=== PATIENT | male | born 1940 | race Caucasian/White ===

== ENCOUNTER 2021-12-09 10:06 | Emergency (ER) | payer OTHER, SELFPAY ==
--- NOTE | ~2021-12-09 | CT_ITS ---
EXAMINATION: CTA chest PE protocol DATE: 12/09/2021 13:50 INDICATION: Shortness of breath, cough TECHNIQUE: Computed tomography angiography (CTA) of the chest was performed with 100 mL Omnipaque-350 intravenous contrast timed to evaluate the pulmonary arteries. Coronal maximum intensity projection 3D-reconstructions were created by the technologist. Automated exposure control and iterative reconst ruction technique were employed. Exam dose: 559.14 mGy-cm total exam DLP. COMPARISON: 12/2021 PA and lateral chest FINDINGS: There is diagnostic contrast enhancement of the pulmonary arteries and no evidence of pulmo nary embolism. No thoracic aortic aneurysm or dissection. No hilar or mediastinal mass lesion or lymphadenopathy. Normal heart size. Coronary calcifications. No pericardial or pleural effusion. Mild discoid atelectasis or scarring at the lung bases. No pulmonary infiltrate or consolidation or s uspicious pulmonary mass lesion. Normal morphology of the adrenal glands. Degenerative spurring of the thoracic spine. Mild biconcavity, likely chronic, of T2 and T3. No suspi cious osteolytic or osteoblastic lesions. IMPRESSION: No evidence of pulmonary embolism Reviewed, dictated and finalized at [facility]. Reviewed, dictated and finalized at [facility].
--- NOTE | ~2021-12-09 | XR_ITS ---
XR chest 2V DATE: 12/09/2021 11:22 INDICATION: Cough, shortness of breath, rattling when breathing TECHNIQUE: PA and lateral views COMPARISON: 09/09/2006 portable AP chest FINDINGS: Bilateral moderate hyperinflation. No pulmonary infiltrate or consolidation, pleural effusi on or pulmonary vascular congestion or pneumothorax is detected. No pleural effusion or pulmonary vas cular congestion or pneumothorax. Normal heart size. There is aortic unfolding. No hilar or mediastinal enlargement. Mild dextroscoliosis of the thoracic spine. Degenerative spurring of the thoracic spine. IMPRESSION: Moderate hyperinflation; no active cardiopulmonary disease Reviewed, dictated and finalized at [facility].
[2021-12-09 10:17] VITALS: BP 172/101; PULSE 83; RESP 18; TEMP 36.6; O2SAT 100
[2021-12-09 10:45] VITALS: O2SAT 97
[2021-12-09 10:46] VITALS: BP 143/88; PULSE 78; RESP 18; O2SAT 98
--- NOTE | 2021-12-09 12:00 | ECG_ITS ---
Measurements Intervals [place] Rate: 61 P: 36 SC: 200 QRS: 2 QRSD: 106 T: 30 QT: 393 QTc: 398 Interpretive Statements SINUS RHYTHM BASELINE ARTIFACT- V1 NORMAL ECG Electronically Signed On 12-09-2021 15:17:00 CDT by Gautam Quintero D.O.
--- NOTE | 2021-12-09 12:02 | ED.SOB ---
HPI - SOB/Dyspnea General Chief Complaint: Upper Respiratory Infection Stated Complaint: cough, SOB Time Seen by Provider: 12/09/21 11:23 History of Present Illness HPI Narrative: pt says sick with a cough for a month and has seen UC after his doc's PA got a zpak first then prednisone and nothing helping coughing so much that chest adn back hurting and says new symptom is can't lay down b/c has such wheezing start up and cough worse when laying down also using inhalers and isn't helping. no trips no leg swelling or calf pain, got covid booster during infection thinking it would help and hasn't concerned something else is going on and needs w/u. no other cp/n/v/d/sweating/f/sob really but has symptoms with laying down/abd pain/trauma/neuro changes and no dx chf Related Data Home Medications Medication Instructions Recorded Confirmed diclofenac sodium 75 mg 75 mg PO BID PRN pain 10/18/21 12/03/21 tablet,delayed release glimepiride 4 mg tablet 4 mg PO BID 10/18/21 12/03/21 metformin 500 mg tablet,extended 2,000 mg PO DAILY 10/18/21 12/03/21 release 24 hr albuterol sulfate 90 mcg/actuation 2 inh inhalation Q6H 12/03/21 12/03/21 aerosol inhaler azithromycin 250 mg tablet See Rx Instructions PO .COMPLEX 12/03/21 12/03/21 benzonatate 200 mg capsule 200 mg PO TID 12/03/21 12/03/21 Allergies Allergy/AdvReac Type Severity Reaction Status Date / Time No Known Allergies Allergy Verified 12/09/21 10:20 Review of Systems Constitutional: Comments: CONSTITUTIONAL: Denies fever, chills, or sweats. EYES: Denies visual changes, redness, or discharge. ENT: Denies rhinorrhea, congestion, sore throat, or otalgia. CARDIOVASCULAR: Denies chest pain, palpitations, or edema. RESPIRATORY: has cough and wheezing worse with laying down no dyspnea. GASTROINTESTINAL: Denies abdominal pain, nausea, vomiting, or diarrhea. GENITOURINARY: Denies dysuria or hematuria. SKIN: Denies rash or itching. MUSCULOSKELETAL: Denies back pain, joint pain, or myalgia. NEUROLOGIC: Denies headache, numbness, or weakness. PSYCHIATRIC: Denies anxiety or depression. [facility] Past Medical History Medical History History of colon cancer (~2006) Surgical History Surgical History History of abdominal surgery 2009, adhesiolysis History of arthroscopy of left knee (~10/2015) History of left hemicolectomy (~2006) For cancer History of total knee arthroplasty 2018, right Family History Family History Father Parkinson's disease Sibling Diabetes mellitus Other Carcinoma of colon Social History Social History (Updated 12/03/21 @ 13:30 by Cayla Palafox MA) Smoking status: Former smoker Second hand tobacco smoke exposure: No Smoking end date: 06/08/94 Alcohol intake: current Alcohol use details: Ocassional Substance use: never Substance use type: does not use Gender identity (if verbalized by the patient): Male Sexual Orientation (if Verbalized by the Patient): Straight or Heterosexual Spiritual care concerns: No Agree to blood products: Yes Exam Const: Other: APPEARANCE: Well appearing, no pain in distress, well-nourished. Head normocephalic atraumtaic. EYES: PERRLA/EOMI, conjunctivae very clear. NOSE: Normal no drainage EARS:TMS clear [place], with good light reflex. THROAT: Pharynx clear, no exudate. NECK: Supple. No adenopathy, no masses. RESPIRATORY: Airway patent, repsirations nonlabored. rhonchi, wheezing b/l and no rales. CARDIOVASCULAR: Regular rate and rhythm without murmurs rubs or gallops. ABDOMINAL: Soft, nontender, nondistended, no hepatosplenomegally MUSCULOSKELETAl: Moves all extremities. Strenght/ROM intact, No edema, No calf tenderness. NEURO: Alert. Cranial nerves II through XII intact. Good gait. Good coordination SKIN:: Warm, dry. No
[2021-12-09 12:20] LABS: SARS-CoV-2 RNA PCR Negative
[2021-12-09 12:45] LABS: Basophils Percent Auto 0.2 % (0.2-1.2); Eosinophils Absolute Auto 0.1 K/mm3 (0-0.3); Eosinophils Percent Auto 0.8 % (0-4.4); Hematocrit 37.7 % (42.0-52.0); Hemoglobin 12.5 g/dL (14.0-18.0); Immature Granulocyte Absolute 0.17 K/mm3 (0.00-0.031); Immature Granulocyte Percent A 1.8 % (0-0.5); Lymphocytes Absolute Auto 2.68 K/mm3 (0.9-3.2); Lymphocytes Percent Auto 28.8 % (18.3-44.2); Mean Corpuscular HGB Conc 33.2 g/dl (32-36); Mean Corpuscular Hemoglobin 31.5 pg (26-34); Mean Platelet Volume 9.7 fl (7.4-10.4); Monocytes Absolute Auto 0.7 K/mm3 (0.1-0.6); Monocytes Percent Auto 7.3 % (2.6-8.5); Neutrophils Absolute Auto 5.7 K/mm3 (1.3-6.7); Neutrophils Percent Auto 61.1 % (45.5-73.1); Platelet Count Result 237 k/mm3 (150-375); Red Blood Count 3.97 M/mm3 (4.6-6.20); Red Cell Distribution Width 12.2 % (11.5-14.5); White Blood Count 9.3 K/mm3 (4.5-10.0)
[2021-12-09 12:55] LABS: Alanine Aminotransferase 15 U/L (6-50); Albumin Level 3.8 g/dL (3.5-5.1); Alkaline Phosphatase 73 U/L (38-126); Anion Gap 4 mmol/L (8-16); Aspartate Amino Transferase 16 U/L (17-59); Bilirubin,Total 0.3 mg/dL (0.2-1.3); Blood Urea Nitrogen 25 mg/dL (9-20); Calcium 8.7 mg/dL (8.4-10.2); Carbon Dioxide 29 mmol/L (22-30); Chloride 101 mmol/L (98-107); Estimated CRCL calculation 57 ml/min; Estimated Glomerular Filt Rate > 60; Glucose 219 mg/dL (65-110); Potassium 3.6 mmol/L (3.4-5.0); Sodium 134 mmol/L (137-145)
[2021-12-09 12:57] LABS: Partial Thromboplastin Time 26.4 SECONDS (22.3-36.8)
[2021-12-09 13:04] LABS: NT Pro B Type Natriuretic Pept 74 pg/mL (5-100)
[2021-12-09 13:12] LABS: Troponin I < 0.012 ng/mL (0.000-0.034)
[2021-12-09 13:24] VITALS: PULSE 72; RESP 18
[2021-12-09] MEDS: IPRATROPIUM BR 0.02% INH SOLN 0.5 MG/2.5 ML VIAL INHALATION (13:24)
[2021-12-09] MEDS: ALBUTEROL SULFATE NEB 2.5 MG/3 ML INH INHALATION (13:24)
[2021-12-09 13:32] VITALS: PULSE 62; RESP 18
[2021-12-09 14:43] VITALS: BP 140/75; PULSE 71; RESP 17; O2SAT 97
== END 2021-12-09 15:01 | disposition home or self-care (01) ==
PROVIDERS: Physician Assistant; Emergency Provider Emergency Medicine; PCP Family Medicine Adolescent Medicine
DX: R05.3 Chronic cough (principal); R06.2 Wheezing; R06.01 Orthopnea; R06.02 Shortness of breath; Z20.822 Contact with and (suspected) exposure to COVID-19; Z87.891 Personal history of nicotine dependence
CPT/HCPCS: 36415; 71046; 71275; 80053; 83735; 83880; 84484; 85025; 85610; 85730; 93005; 94640; 99284; C9803; Q9967; U0003; U0005